=== PATIENT | male | born 1935 | race Caucasian/White ===

== ENCOUNTER 2016-10-03 14:05 | Outpatient (CLI) | payer MEDICARE, OTHER | END 2016-10-03 14:06 | disposition home or self-care (01) | DX: R05 Cough (principal); R00.0 Tachycardia, unspecified; I51.7 Cardiomegaly; R09.89 Other specified symptoms and signs involving the circulatory and respiratory systems ==

== ENCOUNTER 2016-10-14 12:52 | Outpatient (CLI) | payer MEDICARE, OTHER | END 2016-10-14 12:53 | disposition home or self-care (01) | DX: R00.0 Tachycardia, unspecified (principal); I48.91 Unspecified atrial fibrillation; R06.00 Dyspnea, unspecified; I51.9 Heart disease, unspecified; I35.0 Nonrheumatic aortic (valve) stenosis ==

== ENCOUNTER 2016-11-27 10:54 | Outpatient (CLI) | payer MEDICARE, OTHER ==
[2016-11-27] MEDS ORDERED: REGADENOSON 0.4 MG/5 ML SYRINGE IVP ONE (13:45)
== END 2016-11-27 10:55 | disposition home or self-care (01) ==
DX: R06.00 Dyspnea, unspecified (principal); I25.10 Atherosclerotic heart disease of native coronary artery without angina pectoris; I10 Essential (primary) hypertension; E11.9 Type 2 diabetes mellitus without complications; I48.92 Unspecified atrial flutter
CPT/HCPCS: 78452; 93017; A9500; J2785

== ENCOUNTER 2016-12-30 13:21 | Outpatient (CLI) | payer MEDICARE, OTHER ==
[2016-12-30] MEDS ORDERED: ALBUTEROL NEB 2.5 MG/3 ML INH ONE (14:05)
== END 2016-12-30 13:22 | disposition home or self-care (01) ==
DX: R06.09 Other forms of dyspnea (principal)
CPT/HCPCS: 94060; J7613

== ENCOUNTER 2017-02-03 12:40 | Outpatient (CLI) | payer MEDICARE, OTHER ==
[2017-02-03 13:15] LABS: HGB - HEMOGLOBIN 13.9 g/dL (14.0-18.0); MEAN CORPUSCULAR HEMOGLOBIN 32.3 pg (27.0-31.0); MEAN CORPUSCULAR HGB CONC 33.8 g/dL (32.0-36.0); MEAN CORPUSCULAR VOLUME 95.4 fL (80.0-94.0); MEAN PLATELET VOLUME 8.1 fL (7.4-11.4); RED BLOOD COUNT 4.3 10^6/uL (4.70-6.10); RED CELL DISTRIBUTION WIDTH 14.8 % (12.0-15.0); WHITE BLOOD COUNT 4.7 x10^3/uL (4.8-10.8)
[2017-02-03 13:26] LABS: CREATININE 1.1 mg/dL (0.6-1.2); POTASSIUM 4.1 mmol/L (3.5-5.0)
== END 2017-02-03 12:41 | disposition home or self-care (01) ==
LOC: LAB 12:40
PROVIDERS: ATTEND Nurse Practitioner Family
DX: I48.91 Unspecified atrial fibrillation (principal)
CPT/HCPCS: 36415; 80048; 84443

== ENCOUNTER 2017-11-24 13:37 | Outpatient (CLI) | payer MEDICARE, OTHER | END 2017-11-24 13:38 | disposition home or self-care (01) | LOC: LAB 13:37 | PROVIDERS: ATTEND Urology | DX: Z85.46 Personal history of malignant neoplasm of prostate (principal) | CPT/HCPCS: 36415; 84153 ==

== ENCOUNTER 2019-10-12 18:19 | Outpatient (CLI) | payer MEDICARE, OTHER ==
--- NOTE | 2019-10-13 15:47 | CT Report ---
Reason: HEMATURIA, HX OF PROSTATE CA Procedure Date: 10/12/2019 Accession Number: [id number] / [id number] Procedure: CT - Abdomen/Pelvis WO CPT Code: Final Report FULL RESULT: EXAM: CT ABDOMEN AND PELVIS (CT KUB) WITHOUT CONTRAST. EXAM DATE: 10/12/2019 06:45 PM. CLINICAL HISTORY: Hematuria, history of prostate cancer. COMPARISONS: ABDOMEN/PELVIS W/O 01/24/2014 3:01 PM. TECHNIQUE: Routine axial helical CT imaging was performed through the abdomen and pelvis without IV contrast. Reconstructions: Coronal and sagittal. In accordance with CT protocol optimization, one or more of the following dose reduction techniques were utilized for this exam: automated exposure control, adjustment of mA and/or KV based on patient size, or use of iterative reconstructive technique. FINDINGS: Lung Bases: Unremarkable. Right Kidney/Ureter: No stones, hydronephrosis, or hydroureter. No perinephric fat stranding. Left Kidney/Ureter: No stones, hydronephrosis, or hydroureter. No perinephric fat stranding. Simple cyst is noted, 4.7 cm. Other Solid Organs: The liver, spleen, adrenal glands and pancreas are unremarkable aside from splenic calcifications suggestive of prior granulomatous disease. Gallbladder/Bile Ducts: Unremarkable. Peritoneal Cavity: No free fluid, free air or rohan adenopathy. Bowel is grossly unremarkable. Pelvic Organs: Bladder again demonstrates wall thickening with the prostate which contains fiducial markers lifting the bladder base. There is fast running surrounding the bladder. Vasculature: Unremarkable. Other: None. IMPRESSION: No hydronephrosis or renal calculi. Fat stranding surrounding the bladder should be correlated to cystitis. Redemonstration of enlarged prostate with fiducial markers lifting the bladder base. [facility]
== END 2019-10-12 18:20 | disposition home or self-care (01) ==
LOC: DI 18:19
PROVIDERS: ATTEND Physician Assistant Medical
DX: R31.9 Hematuria, unspecified (principal); Z85.46 Personal history of malignant neoplasm of prostate
CPT/HCPCS: 74176

== ENCOUNTER 2022-09-01 08:38 | Outpatient (CLI) | payer MEDICARE, OTHER | END 2022-09-01 08:39 | disposition home or self-care (01) | LOC: LAB.N 08:38 | PROVIDERS: ATTEND Internal Medicine Interventional Cardiology | DX: I25.118 Atherosclerotic heart disease of native coronary artery with other forms of angina pectoris (principal); Z20.822 Contact with and (suspected) exposure to COVID-19 ==

== ENCOUNTER 2022-09-09 10:25 | Outpatient (CLI) | payer MEDICARE, OTHER | END 2022-09-09 10:26 | disposition home or self-care (01) | LOC: LAB.N 10:25 | PROVIDERS: ATTEND Internal Medicine Interventional Cardiology | DX: I25.118 Atherosclerotic heart disease of native coronary artery with other forms of angina pectoris (principal); Z20.822 Contact with and (suspected) exposure to COVID-19 ==

== ENCOUNTER 2022-09-29 10:57 | Outpatient (CLI) | payer MEDICARE, OTHER | END 2022-09-29 10:58 | disposition home or self-care (01) | LOC: LAB.N 10:57 | PROVIDERS: ATTEND Internal Medicine Interventional Cardiology | DX: Z01.812 Encounter for preprocedural laboratory examination (principal); I25.118 Atherosclerotic heart disease of native coronary artery with other forms of angina pectoris; Z20.822 Contact with and (suspected) exposure to COVID-19 ==

== ENCOUNTER 2022-11-20 18:07 | Outpatient (CLI) | payer MEDICARE, OTHER ==
[2022-11-20 18:30] LABS: BASOPHILS % (AUTO) 0.5 %; EOSINOPHILS # (AUTO) 0.2 10^3/uL (0.0-0.7); EOSINOPHILS % (AUTO) 2.2 %; HCT - HEMATOCRIT 37.8 % (42.0-52.0); HGB - HEMOGLOBIN 13.1 g/dL (14.0-18.0); LYMPHOCYTES # (AUTO) 1.4 10^3/uL (1.5-3.5); LYMPHOCYTES % (AUTO) 18.7 %; MEAN CORPUSCULAR HEMOGLOBIN 33.5 pg (27.0-31.0); MEAN CORPUSCULAR HGB CONC 34.7 g/dL (32.0-36.0); MEAN CORPUSCULAR VOLUME 96.7 fL (80.0-94.0); MEAN PLATELET VOLUME 9.2 fL (7.4-11.4); MONOCYTES # (AUTO) 0.6 10^3/uL (0.0-1.0); MONOCYTES % (AUTO) 7.4 %; NEUTROPHILS # (AUTO) 5.4 10^3/uL (1.5-6.6); NEUTROPHILS % (AUTO) 70.8 %; PLT - PLATELET COUNT 171 10^3/uL (130-450); RED BLOOD COUNT 3.91 10^6/uL (4.70-6.10); RED CELL DISTRIBUTION WIDTH 13.6 % (12.0-15.0); WHITE BLOOD COUNT 7.6 x10^3/uL (4.8-10.8)
[2022-11-20 18:44] LABS: CALCIUM 9.7 mg/dL (8.5-10.3); CREATININE 1.2 mg/dL (0.6-1.2); POTASSIUM 3.6 mmol/L (3.5-5.0)
== END 2022-11-20 18:08 | disposition home or self-care (01) ==
LOC: LAB 18:07
PROVIDERS: ATTEND Internal Medicine Cardiovascular Disease
DX: I25.118 Atherosclerotic heart disease of native coronary artery with other forms of angina pectoris (principal)
CPT/HCPCS: 36415; 80048; 85025